=== PATIENT | female | born 1935 | race Caucasian/White ===

== ENCOUNTER 2016-12-15 13:03 | Inpatient (IN) | payer OTHER, MEDICARE ==
[~2016-12-15] VITALS: Ht 157.5 cm; Wt 63.5 kg
[~2016-12-15 13:03] MED LIST: AMLODIPINE BESYL5 M1 PO; ASPIRIN EC81 M1 PO; CALCIUM600 M2 PO; IBUPROFEN600 M1 PO; NORVASC2.5 M1 PO; OMEPRAZOLE20 M2 PO; PROTONIX20 M1 PO; SENNA PLUS TAB1 EACH PO; SIMVASTATIN20 M2 PO; TRIAMTERENE-HC1 EAC1 PO; ZOFRAN ODT4 M1 SL
--- NOTE | 2016-12-15 13:06 | NUR ---
TO EKG [facility].
--- NOTE | 2016-12-15 13:33 | NUR ---
PT TO ROOM22 BY STRETCHER FOR R KNEE PAIN 08/20 S/P KNEE POPPED TODAY. PT STATES R KNEE HAS BEEN PAINFULL FOR 3 WEEKS. PAIN INCREASE WITH PALPATION AND MOVEMENTS. PT DENIES ANY OTHER SYMPTOMS AT THIS TIME, VSS. HX OF HTN, HIGH CHOL,CVA. PA STUDENT TO BEDSIDE FOR PT EVAL.
--- NOTE | 2016-12-15 13:39 | ED UPPER/LOWER EXTREMITY COMPL ---
History of Present Illness General Chief Complaint: Lower Extremity Problems Stated Complaint: RT LEG SWELLING, RT KNEE PAIN Source: patient, family, old records Exam Limitations: no limitations Vital Signs & Intake/Output Vital Signs & Intake/Output Vital Signs Date Time Temp Pulse Resp B/P Pulse O2 O2 Flow FiO2 Ox Delivery Rate 12/16 0709 97.7 67 20 130/70 97 Room Air 12/16 0227 78 120/80 12/15 2247 97.7 92 20 138/80 95 Room Air 12/15 1854 97.1 64 18 178/84 97 Room Air 12/15 1653 97.1 79 18 154/82 97 Room Air 12/15 1331 98.7 77 18 155/78 99 Room Air ED Intake and Output 12/16 0000 12/15 1200 Intake Total Output Total 350 Balance -350 Output, 200 Emesis Output, Urine 150 Patient 140 lb Weight Allergies Coded Allergies: No Known Allergies (04/11/16) Triage Note: PT TO ROOM22 BY STRETCHER FOR R KNEE PAIN 10/10 S/P KNEE POPPED TODAY. PT STATES R KNEE HAS BEEN PAINFULL FOR 3 WEEKS. PAIN INCREASE WITH PALPATION AND MOVEMENTS. PT DENIES ANY OTHER SYMPTOMS AT THIS TIME, VSS. HX OF HTN, HIGH CHOL,CVA. PA STUDENT TO BEDSIDE FOR PT EVAL. Triage Nurses Notes Reviewed? yes Onset: Gradual Duration: week(s): (3), constant, continues in ED, getting worse Timing: recent history Severity: moderate, severe Severity Numbers: 10 Pain/Injury Location: Right: Knee. Method of Injury: unknown Modifying Factors: Improves With: rest. Worsens With: movement. Associated Symptoms: denies HPI: 81-year-old female with history of hypertension high cholesterol presents emergency room for evaluation with her family for evaluation. The patient for the past 3 weeks has had right knee pain, she denies any known injury or trauma however this morning while she was walking with her daughter felt a sharp pop that was sudden in onset to her right knee and since has had 10 out of 10 severe pain and has been unable to ambulate or bear weight on the leg secondary to pain there is no fall. She denies any back hip foot or ankle pain no numbness or tingling. They state that the knee has been swollen however denies any redness or rashes. The patient developed sudden onset of chest pressure and shortness of breath after the knee pain began and has since resolved. She took Tylenol 650 mg at 9:30 this morning without improvement. Pain is worse with attempted range of motion and palpation (JUAN FUNES) Reconcile Medications Amlodipine Besylate 5 MG TABLET 1 TAB PO DAILY BLOOD PRESSURE Aspirin (Ecotrin*) 81 MG TABLET.DR 1 TAB PO DAILY HEART HEALTH (Reported) Calcium Carbonate (Calcium) 600 MG TABLET 1 TAB PO DAILY SUPPLEMENT (Reported ) Simvastatin (Simvastatin*) 20 MG TABLET 1 TAB PO QPM CHOLESTEROL (Reported) (DELIA PARK,CAROL) Past History Travel History Traveled to [place] past 21 day No Medical History Any Pertinent Medical History? see below for history Neurological: CVA Cardiovascular: hypertension, hyperlipidemia Respiratory: NONE Gastrointestinal: NONE Hepatic: NONE Renal: nephrolithiasis Musculoskeletal: prior foot fracture Psychiatric: NONE Endocrine: NONE Blood Disorders: NONE Cancer(s): skin cancer s/p resection BAND EDGER/Reproductive: TERRA History of MRSA: No History of VRE: No History of CDIFF: No Surgical History Surgical History: non-contributory Psychosocial History Who do you live with Family Services at Home None What is your primary language Yemeni Tobacco Use: Never used Family History Family History, If Any: FATHER FH: heart disease, Onset: 60+. Relation not specified for: Stroke or transient ischemic attack in mother Hx Contributory? No (JUAN FUNES) Review of Systems Review of Systems Constitutional: Reports: see HPI. All Other Systems: Reviewed and Negative Comments Review of systems: See HPI, All other systems negative. Constitutional, no chills no fever, no malaise n HEENT: No visual changes no sore throat no congestion, no ear pain Cardiovascular: chest pain , no palpitation , no orthopnea no ankle swelling Skin, no jaundice no rashes, no change in skin Respiratory: No dyspnea no cough no sputum no hemoptysis GI: No nausea no vomiting, no diarrhea, : No dysuria No hematuria, no frequencye Muscle skeletal: joint pain, no joint swelling, no back pain, no neck pain, Neurologic: No numbness no confusion, no headache Psych: No stress Heme/endocrine: No bruising no bleeding Immunology: No lymphadenopathy, (JUAN FUNES) Physical Exam Physical Exam General Appearance: well developed/nourished, alert, awake Comments: Well-developed well-nourished person in no acute distress HEENT: Normal EENT exam; PERRL, EOMI, no nystagmus. HEAD is atraumatic. moist mucous membranes. Neck: Supple, no lymphadenopathy, normal range of motion without pain or tenderness Back: Nontender, no CVA tenderness. Full range of motion Cardiovascular: Regular rate and rhythms no murmurs rubs or gallops, normal JVP Respiratory: Chest nontender.There were no bony deformities, no asymmetry. No respiratory distress. Patient speaking in full complete sentences. Breath sounds clear to auscultation bilaterally: NO W/R/R Abdomen: Soft, nontender nondistended, no appreciable organomegaly. Normal bowel sounds. No rebound/guarding, No appreciable enlargement of the abdominal aorta, No ascites. Upper Extremity: No edema, full range of motion of extremities, normal and equal pulses bilaterally, 5 out of 5 strength noted to bilateral upper extremities Hip/Pelvis: Atraumatic/Stable. FROM. No pain with pelvic compression Knee: Atraumatic/stable. Patient is able to straight leg raise however with pain LIMITED range of motion secondary pain, anterior knee swelling, no effusion. No laxity. Negative dennys/anterior drawer test. pain with ROM Leg: Atraumatic. Nontender. No edema, 5 out of 5 strength in the lower extremity, normal dorsiflexion of great toe bilaterally, gross sensation is intact, patellar tendon reflex 2+ bilaterally. Ankle/Foot: Atraumatic/stable. Skin intact. FROM. No swelling, no effusion. No laxity on exam Pulses: Normal/equal DP/PT pulses bilaterally. Brisk cap refill Neuro: Alert oriented x3, motor sensory normal, cranial nerves II through XII grossly intact. There were no obvious focal neurologic abnormalities. Skin: No appreciable rash on exposed skin, skin is warm and dry. Psych: Mood and affect is normal, memory and judgment is normal. (THAIS COTTO,JUAN) Progress Differential Diagnosis: compartment syndrome, contusion, dislocation, DVT, fracture, gout, septic arthritis, sprain, tendon injury, ami, pe Plan of Care: Orders Procedure Date/time Status Heart Healthy Diet 12/16 B Active Vital Signs 12/15 1943 Active Teach/Educate 12/15 1943 Active Nutritional Intake, Monitor 12/15 1943 Active Isolation 12/15 1943 Active Intake & Output 12/15 1943 Active Patient Care Conference 12/15 1943 Active Activity/Ambulation 12/15 194 Active MRI-RT KNEE W/O & W MONALISA 12/15 192 Active Pathway - chart 12/15 1740 Active House Staff 12/15 1740 Active Patient Data 12/15 1740 Active Code Status 12/15 1740 Active Patient Data 12/15 1646 Active Admit to inpatient 12/15 1631 Active Vital Signs 12/15 1631 Active Code Status 12/15 1631 Complete Intake & Output 12/15 1500 Active URIC ACID 12/15 1446 Complete RHEUMATOID FACTOR 12/15 1446 Complete WESTERGREN SED RATE 12/15 1446 Complete C-REACTIVE PROTEIN 12/15 1446 Complete ANTINUCLEAR ANTIBODY 12/15 1446 Active Durable Medical Equipment 12/15 1445 Active Saline Lock 12/15 1406 Active TROPONIN LEVEL 12/15 1356 Complete COMPREHENSIVE METABOLIC PANEL 12/15 1356 Complete CBC WITHOUT DIFFERENTIAL 12/15 1356 Complete EKG 12/15 1306 Active PT Evaluate & Treat 12/15 UNK Active Lab Add-on Test 12/15 UNK Active VTE Mechanical Prophylaxis 12/15 UNK Active Nursing Misc 12/15 UNK Active MRI-RT KNEE W/O & W MONALISA 12/15 UNK Active EKG 12/15 UNK Active Current Medications Sig/Saad Start time Last Medication Dose Stop Time Status Admin Atorvastatin Calcium 20 MG 1700 12/16 1700 AC (Lipitor) Amlodipine Besylate 5 MG DAILY 12/16 1000 AC (Norvasc) Aspirin Buffered 81 MG DAILY 12/16 1000 AC (Ecotrin) Omeprazole 20 MG BID 12/15 2200 CAN (Prilosec) Senna/Docusate Sodium 1 TAB BID PRN 12/15 2014 AC (Senokot S) Ondansetron HCl 4 MG Q6P PRN 12/15 1930 AC (Zofran) Oxycodone/ 1 TAB Q4 PRN 12/15 1745 AC Acetaminophen (Percocet) Ketorolac 30 MG ONCE ONE 12/15 1415 CAN Tromethamine 12/15 1416 (Toradol) Laboratory Tests 12/15/16 1446: Rheum Factor Semi-Quant < 8.6 12/15/16 1446: Anion Gap 12, Estimated GFR > 60, BUN/Creatinine Ratio 18.8, Glucose 79, Uric Acid 5.1, Calcium 10.5 H, Total Bilirubin 0.7, AST 26, ALT 35, Alkaline Phosphatase 94, Troponin I < 0.01, C-Reactive Prot, Quant < 0.5, Total Protein 7.5, Albumin 4.6, Globulin 2.9, Albumin/Globulin Ratio 1.6, CBC w Diff NO MAN DIFF REQ, RBC 4.78, MCV 92.1, MCH 30.8, RDW 13.2, MPV 8.4, Gran % 62.5, Lymphocytes % 29.0, Monocytes % 7.3, Eosinophils % 0.6, Basophils % 0.6, Absolute Granulocytes 6.4, Absolute Lymphocytes 3.0, Absolute Monocytes 0.8 H, Absolute Eosinophils 0.1, Absolute Basophils 0.1, PUBS MCHC 33.5, ESR Westergren 22 H, KYRA Titer Pending, Anti-Nuclear Antibody Pending Labs ordered over reviewed patient medicated with Toradol 15 mg morphine 2 mg IV ultrasound x-ray ordered On repeat evaluation patient reports pain has persisted morphine 2 mg IV ordered , I discussed with the patient and her family and daughter her ultrasound and lab results x-ray findings leg immobilizer was applied. Patient is still having difficulty bending leg discussed with him given her symptoms she may require admission for PT consult possible MRI which they're in agreement with however recheck after she is medicated 12/15/2016 4:38:12 PM patient unable to ambulate and get out of bed secondary to pain discussed with her daughter the plan of care she is a fall risk premature discharge repeat medically harmful which they're in agreement with Case discussed with Dr. Hunter Case discussed with Dr. ANNE (THAIS COTTO,JUAN) Diagnostic Imaging: Viewed by Me: Radiology Read, Ultrasound. Discussed w/RAD: Radiology Read, Ultrasound. Radiology Impression: PATIENT: QUENTIN GOULD PRESENT AGE: 81 PATIENT ACCOUNT NO: [id number] : 34 LOCATION: [facility] ORDERING PHYSICIAN: JUAN COTTO SERVICE DATE: 12/15/16 EXAM TYPE: RAD - XRY- KNEE COMPLETE RIGHT EXAMINATION: XR KNEE, RIGHT CLINICAL INFORMATION: Right knee pain. No known injury. COMPARISON: None TECHNIQUE: Four views of the right knee. FINDINGS: Bones and soft tissues are normal. No fracture or joint effusion. Alignment is anatomic. Joint spaces are well maintained. No abnormal soft tissue calcification. Joint spaces are maintained. No significant degenerative disease is seen. Mild vascular calcification is seen in the popliteal artery. IMPRESSION : Normal right knee. DICTATED BY: SOURAV NICE MD DATE/TIME DICTATED:1439 HEAT READER:ANSELMO DATE/TIME TRANSCRIBED:12/15/161439 CONFIDENTIAL, DO NOT COPY WITHOUT APPROPRIATE AUTHORIZATION. <Electronically signed in Other Vendor System> SIGNED BY: SOURAV NICE MD 12/15/161444 , PATIENT: QUENTIN GOULD PRESENT AGE: 81 PATIENT ACCOUNT NO: [id number] : 34 LOCATION: [facility] ORDERING PHYSICIAN: JUAN COTTO SERVICE DATE: 12/15/16 EXAM TYPE: US - US-UNILATERAL VENOUS DOPPLER EXAMINATION: US TRIPLEX LOWER EXTREMITY, RIGHT CLINICAL INFORMATION: Right lower extremity pain and swelling. COMPARISON: None TECHNIQUE: Color-flow triplex imaging with spectral analysis and compression Doppler were performed on the right lower extremity. FINDINGS: Respiratory variation, normal compression and augmented flow are noted throughout the lower extremity. The visualized common femoral vein, proximal greater saphenous vein, femoral vein, profunda femoral vein, popliteal vein and visualized mid calf venous segments show no evidence of deep venous thrombosis. There is no Ny's cyst. IMPRESSION: Normal triplex scan without evidence of deep venous thrombosis involving the right lower extremity. DICTATED BY: MARVIN PATEL MD DATE/TIME DICTATED:12/15/161434 HEAT READER:ANSELMO DATE/TIME TRANSCRIBED:12/15/161434 CONFIDENTIAL, DO NOT COPY WITHOUT APPROPRIATE AUTHORIZATION. <Electronically signed in Other Vendor System> SIGNED BY: MARVIN PATEL MD 12/15/161445 (JUAN FUNES) Departure Departure Time of Disposition: 1633 Disposition: HOME OR SELF CARE Condition: Stable Clinical Impression Primary Impression: Knee pain Secondary Impressions: Gait instability Referrals: PHILL PARK,LYNDA Hopkins (PCP/Family) Departure Forms: Customer Survey General Discharge Information Admission Note Spoke With: ALLISON ANNE MD Documentation of Exam: Documentation of any treatments & extenuating circumstances including Concerns Regarding Discharge (functional status, medication knowledge or non-compliance, living conditions, etc.) that warrant an admission rather than observation: PAIN intractable despite multiple doses of iv narcotics, unable to stand ambulate at [facility] secondary to pain, pt will require iv pain meds, PT consult, possible MRI of knee, premature discharge would be medically- she is a fall risk (THAIS COTTO,JUAN) PA/YOKE PRESSER Co-Sign Statement Statement: ED Attending supervision documentation- [X] I saw and evaluated the patient. I have also reviewed all the pertinent lab results and diagnostic results. I agree with the findings and the plan of care as documented in the PA's/YOKE PRESSER's documentation. [X] I have reviewed the ED Record and agree with the PA's/YOKE PRESSER's documentation. [] Additions or exceptions (if any) to the PAs/YOKE PRESSER's note and plan are summarized below: [] (DELIA PARK,CAROL)
--- NOTE | 2016-12-15 14:03 | NUR ---
PT EVALUATED BY YADIEL PLASCENCIA AND SENT TO US BY NORIS.
--- NOTE | 2016-12-15 14:45 | RADIOLOGY REPORT ---
EXAMINATION: XR KNEE, RIGHT CLINICAL INFORMATION: Right knee pain. No known injury. COMPARISON: None TECHNIQUE: Four views of the right knee. FINDINGS: Bones and soft tissues are normal. No fracture or joint effusion. Alignment is anatomic. Joint spaces are well maintained. No abnormal soft tissue calcification. Joint spaces are maintained. No significant degenerative disease is seen. Mild vascular calcification is seen in the popliteal artery. IMPRESSION: Normal right knee.
--- NOTE | 2016-12-15 14:46 | ULTRASOUND REPORT ---
EXAMINATION: US TRIPLEX LOWER EXTREMITY, RIGHT CLINICAL INFORMATION: Right lower extremity pain and swelling. COMPARISON: None TECHNIQUE: Color-flow triplex imaging with spectral analysis and compression Doppler were performed on the right lower extremity. FINDINGS: Respiratory variation, normal compression and augmented flow are noted throughout the lower extremity. The visualized common femoral vein, proximal greater saphenous vein, femoral vein, profunda femoral vein, popliteal vein and visualized mid calf venous segments show no evidence of deep venous thrombosis. There is no Ny's cyst. IMPRESSION: Normal triplex scan without evidence of deep venous thrombosis involving the right lower extremity.
--- NOTE | 2016-12-15 14:58 | NUR ---
PT RETURNED FROM US BY STRETCHER. IV EST, PT MEDICATED WITH TORADOL AND MORPHINE PER EMAR. TOLERATED WELL. BLOOD DRAWN AND SENT TO [facility].
[2016-12-15 15:00] LABS: ABSOLUTE BASOPHIL COUNT 0.1 /CUMM (0.0-0.2); ABSOLUTE EOSINOPHIL COUNT 0.1 /CUMM (0.0-0.7); ABSOLUTE GRANULOCYTE CT 6.4 /CUMM (1.4-6.5); ABSOLUTE MONOCYTE COUNT 0.8 /CUMM (0.10-0.60); BASOPHIL % 0.6 % (0.0-2.0); EOSINOPHIL % 0.6 % (0-5); GRANULOCYTE % 62.5 % (42.2-75.2); MEAN CORPUSCULAR HGB 30.8 PG (27.0-31.0); MEAN CORPUSCULAR HGB CONC 33.5 G/DL (33.0-37.0); MEAN CORPUSCULAR VOLUME 92.1 FL (81.0-99.0); MEAN PLATELET VOLUME 8.4 FL (7.4-10.4); PLATELET COUNT 284 /CUMM (130-400); RBC DISTRIBUTION WIDTH 13.2 % (11.5-14.5); RED BLOOD CELL CT 4.78 /CUMM (4.20-5.40); WHITE BLOOD CELL COUNT 10.3 /CUMM (4.8-10.8)
--- NOTE | 2016-12-15 15:56 | NUR ---
PT STILL REPORTS R KNEE PAIN 08/20, MEDICATED WITH MORPHINE 2MG PER EMAR. KNEE IMMOBILIZER APPLIED TO R KNEE.
--- NOTE | 2016-12-15 17:25 | NUR ---
PT IS GOING TO ROOM 235-2
--- NOTE | 2016-12-15 17:44 | NUR ---
HOUSE STAFF AT BEDSIDE FOR PT EVAL.
--- NOTE | 2016-12-15 17:58 | NUR ---
FOOD TRAY ORDERED FOR PT.
--- NOTE | 2016-12-15 18:19 | History & Physical ---
ISRAEL PENNY 12/15/16 1756: General Information and HPI MD Statement: I have seen and personally examined QUENTIN GOULD and documented this H&P. The patient is a 81 year old F who presented with a patient stated chief complaint of [intractable right knee pain]. Source of Information: patient, family Exam Limitations: language barrier History of Present Illness: Patient is 82-year-old Croatian female with past medical history of hypertension, hyperlipidemia, nephrolithiasis who was brought into the ED for evaluation by her daughter for intractable right knee pain. The patient started having knee pain about 3 weeks ago. The pain has been getting worse over the past few days and today the patient heard a pop followed by sharp,10/10 pain in the right knee radiating to her ankle. Since today morning she hasn't been able to ambulate secondary to the pain. Denies any history of recent infection, diarrhea, trauma, falls, recent injuries, history of gout or osteoarthritis. Denies any fever, chills, rashes, tingling or numbness in the leg. She had developed a chest discomfort and shortness of breath after the knee pain began in the morning however it resolved by itself. She took Tylenol in the morning with no improvement. Has severe restriction of motion with leg movement. No previous attacks of arthropathy in the past. In the ED vitals were temperature 98.7, pulse 77, respiration 18, blood pressure 155/78, saturating 99% on room air. No white count, normal blood chemistries, negative troponins. Knee x-ray: Showed no evidence of fractures/effusion/no soft tissue calcifications/no joint space reduction/no significant degenerative disease. Mild vascular calcification seen in the popliteal artery. Ultrasound Doppler negative for DVT Patient received IV morphine and Toradol IV in the ER with slight improvement in symptoms. Allergies/Medications Allergies: Coded Allergies: No Known Allergies (04/11/16) Home Med list Amlodipine Besylate 5 MG TABLET 1 TAB PO DAILY BLOOD PRESSURE Aspirin (Ecotrin*) 81 MG TABLET.DR 1 TAB PO DAILY HEART HEALTH (Reported) Calcium Carbonate (Calcium) 600 MG TABLET 1 TAB PO DAILY SUPPLEMENT (Reported ) Simvastatin (Simvastatin*) 20 MG TABLET 1 TAB PO QPM CHOLESTEROL (Reported) Past History Travel History Traveled to [place] past 21 day No Medical History Neurological: CVA Cardiovascular: hypertension, hyperlipidemia Respiratory: NONE Gastrointestinal: NONE Hepatic: NONE Renal: nephrolithiasis Musculoskeletal: prior foot fracture Psychiatric: NONE Endocrine: NONE Blood Disorders: NONE Cancer(s): skin cancer s/p resection 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 Relation not specified for: Stroke or transient ischemic attack in mother Psychosocial History Who Do You Live With? child Services at Home: None Primary Language: Croatian Name of POA/HCP: Christiana [id number] Functional Ability ADLs Independent: dressing, eating, toileting, bathing. Ambulation: independent IADLs Independent: shopping, housework, finances, food prep, telephone, medication admin. Unknown: transportation. Review of Systems Review of Systems Constitutional: Reports: malaise, weakness. EENTM: Reports: no symptoms. Cardiovascular: Reports: no symptoms. Respiratory: Reports: no symptoms. GI: Reports: no symptoms. Genitourinary: Reports: no symptoms. Musculoskeletal: Reports: joint pain, joint swelling, muscle pain, muscle stiffness. Skin: Reports: no symptoms. Neurological/Psychological: Reports: no symptoms. Exam & Diagnostic Data Last 24 Hrs of Vital Signs/I&O Vital Signs Date Time Temp Pulse Resp B/P Pulse O2 O2 Flow FiO2 Ox Delivery Rate 12/15 1653 97.1 79 18 154/82 97 Room Air 12/15 1331 98.7 77 18 155/78 99 Room Air Intake & Output 12/15 1600 12/15 0800 12/15 0000 Intake Total Output Total Balance Patient 63.503 kg Weight Physical Exam General Appearance Alert, Oriented X3, Cooperative, Moderate Distress Skin No Rashes, No Breakdown HEENT Atraumatic, PERRLA Neck Supple, No JVD Lymphatic Cervical nl Cardiovascular Regular Rate, Normal S1, Normal S2, No Murmurs Lungs Clear to Auscultation, Normal Air Movement Abdomen Normal Bowel Sounds, Soft, No Tenderness Neurological Normal Speech, Normal Tone, Sensation Intact, Cranial Nerves 3-12 NL, severe ROM in the right leg Extremities No Clubbing, No Cyanosis, right knee hot and tender. No fluctuation, no crepitations Vascular Normal Pulses, Pulses Symmetrical Last 24 Hrs of Labs/Joe: Laboratory Tests 12/15/16 1446: Anion Gap 12, Estimated GFR > 60, BUN/Creatinine Ratio 18.8, Glucose 79, Calcium 10.5 H, Total Bilirubin 0.7, AST 26, ALT 35, Alkaline Phosphatase 94, Troponin I < 0.01, Total Protein 7.5, Albumin 4.6, Globulin 2.9, Albumin/Globulin Ratio 1.6, CBC w Diff NO MAN DIFF REQ, RBC 4.78, MCV 92.1, MCH 30.8, RDW 13.2, MPV 8.4 , Gran % 62.5, Lymphocytes % 29.0, Monocytes % 7.3, Eosinophils % 0.6, Basophils % 0.6, Absolute Granulocytes 6.4, Absolute Lymphocytes 3.0, Absolute Monocytes 0.8 H, Absolute Eosinophils 0.1, Absolute Basophils 0.1, PUBS MCHC 33.5 Assessment/Plan Assessment: Patient is 82-year-old Croatian female with past medical history of hypertension, hyperlipidemia, nephrolithiasis, erosive gastritis who was brought into the ED for evaluation by her daughter for intractable right knee pain. In the ED vitals were temperature 98.7, pulse 77, respiration 18, blood pressure 155/78, saturating 99% on room air. No white count, normal blood chemistries, negative troponins. Knee x-ray: Showed no evidence of fractures/effusion/no soft tissue calcifications/no joint space reduction/no significant degenerative disease. Mild vascular calcification seen in the popliteal artery. Ultrasound Doppler negative for DVT Patient received IV morphine and Toradol IV in the ER with slight improvement in symptoms. Plan: 1. Intractable right knee pain? Monoarthritis: Tenderness and heat over the right knee on examination. Differentials could be inflammatory versus noninflammatory pathology. Septic arthritis/gout/pseudogout/osteonecrosis/ fracture/meniscal tear/osteoarthritis/rheumatoid arthritis. No evidence of fracture/dislocation/effusion/soft tissue calcification/joint space reduction/ degenerative disease on x-ray. No signs of infection. No history of gout, or arthritis. -Admit to [facility] floor -Continue splint for now -Vitals every shift -Check ESR and C-reactive protein -Icepack for/leg elevation -Continue knee immobilizer -Continue IV morphine and Percocet for pain control -No NSAIDS geven h/o gastritis -MRI in a.m. to evaluate knee joint -Consider ortho consult -Physical therapy evaluation 2.Continue all other home medications aspirin, statin, amlodipine, Prilosec DVT prophylaxis subcutaneous Lovenox Full code Severe pain pathway As Ranked By This Provider Problem List: 1. Knee pain 2. Gait instability Core Measures/Miscellaneous Acute Coronary Syndrome ACS Diagnosis: No Cerebrovascular Accident CVA/TIA Diagnosis: No Congestive Heart Failure CHF Diagnosis: No Venous Thromboembolism VTE Risk Factors: Age > 40 VTE Prophylaxis Ordered Inpt: Pharm- Lovenox No Mech VTE prophylaxis d/t: No contraindications No VTE Pharm Prophylaxis d/t: No contraindications VTE Diagnosis: No VTE Type: NONE VTE Confirmed by (Test): NONE Severe Sepsis Severe Sepsis Present: No Septic Shock Septic Shock Present: No Miscellaneous Documentation Attending Case Discussed With: OMID PARK,ALLISON Primary Care Physician: LYNDA POLLOCK MD Patient sees these Specialists dr salmon Level of Patient Care: General Medicine AGNIESZKA PARK, [facility] 12/15/16 2030: Attending MD Review Statement Attending Statement Attending MD Statement: examined this patient, discuss w/resident/PA/BLADDER CHANGER, agreed w/resident/PA/BLADDER CHANGER, discussed with family Attending Assessment/Plan: 82 yo Croatian F with h/o HTN, HLD, lung nodules, erosive gastritis, is here with intractable right knee pain, that has gradually progressed over past 3 weeks, with resultant difficulty with ambulation. Patient's daughter Christiana provides history. Patient was walking this afternoon when she heard a 'sudden pop' in her right knee, followed by excruciating pain and swelling of the knee. She did experience some chest discomfort and dyspnea immediately after which has since resolved. Denies trauma, fall, previous h/o gout or arthritis. Last admitted to [place] April 2016 for chest pain and low back pain. Patient follows with Dr. Salmon, she has ?missed beat or irregular beat, per daughter this is being monitored. Vitals stable except for hypertension. Exam: Right knee in immobilizer, when compared to left knee, it is warm, tender only on joint movement, no erythema, mild swelling, no fluctuance, no joint line tenderness. According to daughter, the swelling was pronounced on the posterior aspect of the knee. Peripheral pulses are well felt. Labs: ESR 22, calcium 10.5, otherwise neg work up. Right knee Xray: no effusion or fracture, no soft tissue calcification. Dopplers: no DVT or Ny's cyst. EKG: reported Afib, however visible P waves. Repeat EKG: SR. 1. Intractable right knee pain with difficulty in ambulation. GM admit, fall precautions, pain management with IV morphine and percocet, avoid NSAIDs given h /o erosive gastritis. Check uric acid, RF, CHRISTIANA. Ortho consult and PT eval. Patient will need MRI knee on Saturday to evaluate for cartilage or mesniscal tears. Continue knee immobilizer. 2. Essential hypertension. Continue amlodipine. 3. Patient reports an episode of weakness/ lightheadedness and nausea in the setting of pain. Supportive management with anti-emetic while on opiates. DVT ppx Lovenox. Full code.
--- NOTE | 2016-12-15 18:45 | NUR ---
REPORT GIVEN TO MALLIKA DUGAN TO [facility], [employer] CALLED FOR TRANSPORTATION.
--- NOTE | 2016-12-15 19:56 | NUR ---
PT ARRIVED TO FLOOR AT THIS TIME. PT ALERT AND ORIENTED, VOMITED X 1 AFTER MOVEMENT FROM STRETCHER TO BED. DAUGHTER AT BEDSIDE TRANSLATING. PER DAUGHTER PT'S BP WAS "HIGH IN THE ER JUST BEFORE SHE CAME UP HERE, I TOLD THEM TO CALL YOU, BUT I WROTE IT DOWN, 184/72" "THEN THEY RECHECKED IT AND IT WENT DOWN A LITTLE" PER DAUGHTER, PT WAS HERE IN [place] AND "HAD A STROKE" DR AARON AT BEDSIDE, REQUESTING 2ND EKG THE ONE PERFORMED IN ER SHOWED AFIB, WHICH IS NOT IN THE HISTORY. DR AARON EVALUATING PATIENT AT THIS TIME. PT STATING DIZZINESS WHILE MST WAS TAKING VS, PT LYING IN BED AND PER DAUGHTER "SHE SAID THAT THE ROOM IS SPINNING". IMMOBILIZER IN PLACE TO RIGHT KNEE. DENIES PAIN AT THIS TIME, ONLY WITH MOVEMENT.
--- NOTE | 2016-12-15 20:53 | Admission Certification ---
Admission Certification Certification Statement - As attending physician, I certify that at the time of - admission, based on clinical presentation, severity of - symptoms, need for further diagnostic testing and - therapeutic interventions, and risk of adverse outcomes - without in-hospital treatment, in my clinical assessment, - this patient requires an acute hospital stay for a minimum - of two nights or longer. I have also considered psychsocial - factors such as support system, advanced age, financial - issues, cognitive issues, and failed out-patient treatments, - past re-admission history, safety of patient, and lack of - compliance as applicable. Specific rationale supporting this admission is: Intractable right knee pain, difficulty ambulating.
--- NOTE | 2016-12-15 21:02 | NUR ---
PER ANOTHER NURSE, PT VOMITED AT THIS TIME, TIGAN GIVEN, 150-200 CC YELLOW VOMIT
[2016-12-15 22:47] VITALS: BP 138/80
[2016-12-16 02:27] VITALS: BP 120/80
[2016-12-16 07:09] VITALS: BP 130/70
--- NOTE | 2016-12-16 08:52 | PN- Housestaff ---
[facility] 12/16/16 0852: Subjective Follow-up For: Intractable right knee pain? Monoarthritis Complaints: continues to have pain in the right knee. Feeling much better with IV morphine and Percocet. Subjective: Patient was admitted yesterday for intractable right knee pain with severe restriction of movement. She has been receiving IV morphine and Percocet round- the-clock for pain control. Pain this morning is 7 / 10. Knee is currently in an immobilizer. Does not have any other complaints. Review of Systems Constitutional: Reports: malaise, weakness. EENTM: Reports: no symptoms. Cardiovascular: Reports: no symptoms. Respiratory: Reports: no symptoms. Gastrointestinal: Reports: no symptoms. Genitourinary: Reports: no symptoms. Musculoskeletal: Reports: joint pain, joint swelling, muscle pain, muscle stiffness (rt knee pain ). Skin: Reports: no symptoms. Neurological/Psychological: Reports: no symptoms. Objective Last 24 Hrs of Vital Signs/I&O Vital Signs Date Time Temp Pulse Resp B/P Pulse O2 O2 Flow FiO2 Ox Delivery Rate 12/16 0855 78 130/70 / 0709 97.7 67 20 130/70 97 Room Air / 0227 78 120/80 02/ 2247 97.7 92 20 138/80 95 Room Air / 1854 97.1 64 18 178/84 97 Room Air 02/ 1653 97.1 79 18 154/82 97 Room Air / 1331 98.7 77 18 155/78 99 Room Air Intake & Output / 1600 / 0800 02/ 0000 Intake Total Output Total 350 Balance -350 Output, 200 Emesis Output, Urine 150 Physical Exam General Appearance: Alert, Oriented X3, Cooperative, Mild Distress Skin: right knee swelling improved from yesterday. Immobilizer in place. HEENT: Atraumatic, PERRLA, EOMI Neck: Supple, No JVD Lymphatic: Cervical nl Cardiovascular: Regular Rate, Normal S1, Normal S2, No Murmurs Lungs: Clear to Auscultation, Normal Air Movement Abdomen: Normal Bowel Sounds, Soft, No Tenderness Neurological: Normal Speech, Normal Tone, severe ROM in right leg, exam not possible due to pain. . Power 5/5 in all othert extremities, reflexses intact Extremities: swelling in rt knee improved. Severe ROM, immobilizer in place. Vascular: Normal Pulses, Pulses Symmetrical Current Medications: Current Medications Sig/Saad Start time Last Medication Dose Route Stop Time Status Admin Amlodipine Besylate 5 MG DAILY 12/16 1000 AC 12/16 PO 0855 Aspirin Buffered 81 MG DAILY 12/16 1000 AC 12/16 PO 0855 Atorvastatin Calcium 20 MG 1700 12/16 1700 AC PO Enoxaparin Sodium 40 MG DAILY 12/15 1739 AC 12/16 SC 0856 Ketorolac 0 .STK-MED ONE 12/15 1451 DC Tromethamine .ROUTE Ketorolac 15 MG ONCE ONE 12/15 1430 DC 12/15 Tromethamine IV 12/15 1431 1458 Ketorolac 30 MG ONCE ONE 12/15 1415 CAN Tromethamine IV 12/15 1416 Morphine Sulfate 0 .STK-MED ONE 12/15 1903 DC .ROUTE Morphine Sulfate 2 MG Q2 PRN 12/15 1745 AC 12/15 IV 1911 Morphine Sulfate 0 .STK-MED ONE 12/15 1550 DC .ROUTE Morphine Sulfate 2 MG ONCE ONE 12/15 1545 DC / IV 12/15 1546 1555 Morphine Sulfate 0 .STK-MED ONE 12/15 1452 DC .ROUTE Morphine Sulfate 2 MG ONCE ONE 12/15 1415 DC /04 IV 12/15 1416 1458 Omeprazole 20 MG BID 12/15 2200 CAN PO Ondansetron HCl 4 MG Q6P PRN 12/15 1930 AC IV Ondansetron HCl 0 .STK-MED ONE 12/15 1904 DC .ROUTE Ondansetron HCl 4 MG ONCE ONE 12/15 1900 DC 12/15 IV 12/15 1901 1911 Oxycodone/ 1 TAB Q4 PRN 12/15 1745 AC Acetaminophen PO Patient Medication 1 UNIT ONE NR 12/15 1800 NV Teaching ED 12/15 1830 Patient Medication 1 UNIT ONE NR 12/15 1745 NV Teaching ED 12/15 1800 Patient Medication 1 UNIT ONE NR 12/15 1745 NV Teaching ED 12/15 1800 Patient Medication 1 UNIT ONE NR 12/15 1745 NV Teaching ED 12/15 1800 Patient Medication 1 UNIT ONE NR 12/15 1745 NV Teaching ED 12/15 1800 Senna/Docusate Sodium 1 TAB BID PRN 12/15 2015 AC PO Triamterene/HCTZ 1 CAP DAILY 12/15 1745 DC PO Trimethobenzamide HCl 200 MG TID PRN 12/15 1930 AC 12/15 IM 2058 Last 24 Hrs of Lab/Joe Results Last 24 Hrs of Labs/Mics: Laboratory Tests 12/15/16 1446: Rheum Factor Semi-Quant < 8.6 12/15/16 1446: Anion Gap 12, Estimated GFR > 60, BUN/Creatinine Ratio 18.8, Glucose 79, Uric Acid 5.1, Calcium 10.5 H, Total Bilirubin 0.7, AST 26, ALT 35, Alkaline Phosphatase 94, Troponin I < 0.01, C-Reactive Prot, Quant < 0.5, Total Protein 7.5, Albumin 4.6, Globulin 2.9, Albumin/Globulin Ratio 1.6, CBC w Diff NO MAN DIFF REQ, RBC 4.78, MCV 92.1, MCH 30.8, RDW 13.2, MPV 8.4, Gran % 62.5, Lymphocytes % 29.0, Monocytes % 7.3, Eosinophils % 0.6, Basophils % 0.6, Absolute Granulocytes 6.4, Absolute Lymphocytes 3.0, Absolute Monocytes 0.8 H, Absolute Eosinophils 0.1, Absolute Basophils 0.1, PUBS MCHC 33.5, ESR Westergren 22 H, KYRA Titer Pending, Anti-Nuclear Antibody Pending Assessment/Plan Assessment: Patient is 82-year-old Nigerien female with past medical history of hypertension, hyperlipidemia, nephrolithiasis, erosive gastritis who was brought into the ED for evaluation by her daughter for intractable right knee pain. Knee x-ray: Showed no evidence of fractures/effusion/no soft tissue calcifications/no joint space reduction/no significant degenerative disease. Mild vascular calcification seen in the popliteal artery. Ultrasound Doppler negative for DVT Patient received IV morphine and Toradol IV in the ER with slight improvement in symptoms. Plan: 1. Intractable right knee pain: Pain and swelling improved since yesterday. X- ray negative for fracture/dislocation/joint space reduction/degenerative changes /effusions. No history of fevers, infections, rashes, gout, arthritis. -Continue knee immobilizer - ESR 22, normal white count, uric acid level, C-reactive protein. -Continue pain control with IV morphine, tylenol and by mouth Percocet -No NSAIDS geven h/o gastritis -MRI on Saturday to evaluate right knee to look for cartilage injury/meniscal tears. -Physical therapy evaluation -Discussed the case with Dr. Rhodes over the phone. Agreeable with the current management. Will wait for the MRI results to discuss further management. Continue other home medications aspirin, statin, amlodipine, Prilosec DVT prophylaxis subcutaneous Lovenox Full code Severe pain pathway Problem List: 1. Gait instability 2. Knee pain 3. Leukocytosis 4. Weakness 5. Full code status 6. Hypertension Pain Ratin Pain Location: right knee Pain Goal: Pain 4 or less Pain Plan: iv morphine/ iv toradol and percocet Tomorrow's Labs & Rationales: none MARTINA PARK,SUSHIL 12/16/16 1311: Attending MD Review Statement Attending Statement Attending MD Statement: examined this patient, discuss w/resident/PA/CHIEF MINISTER, agreed w/resident/PA/CHIEF MINISTER, reviewed EMR data (avail) Attending Assessment/Plan: Patient seen and examined. Plan of care discussed with the medical team and the patient. Available lab work and radiology test reports were reviewed. Patient states that her pain has slightly improved since last night. She has been afebrile and vital signs are stable. Her lab work is stable from admission. Right knee shows only minimal swelling. Assessment plan * Severe right knee pain- add IV Tylenol to pain regimen. If possible avoid NSAIDs such as Toradol due to history of gastritis and esophagitis. Continue PPI. Obtain orthopedic consult and MRI.
[2016-12-16 14:20] VITALS: BP 118/60
[2016-12-16 22:24] VITALS: BP 120/70
--- NOTE | 2016-12-17 06:34 | Cons- Orthopedic ---
General Information and HPI Consulting Request Date of Consult: 12/17/16 Requested By: ALLISON ANNE MD History of Present Illness: This is an 81-year-old female with complaints of right knee pain. She felt acute pain in her knee 2 days ago. She was seen in emergency department and admitted for pain control. She denies any injuries to her knee. She denies any previous surgeries on her right knee. She has mild discomfort in her lower back. She states that initially she was having difficulty with active range of motion of her foot and toes. That has since resolved. Allergies/Medications Allergies: Coded Allergies: No Known Allergies (04/11/16) Home Med List: Amlodipine Besylate 5 MG TABLET 1 TAB PO DAILY BLOOD PRESSURE Aspirin (Ecotrin*) 81 MG TABLET.DR 1 TAB PO DAILY HEART HEALTH (Reported) Calcium Carbonate (Calcium) 600 MG TABLET 1 TAB PO DAILY SUPPLEMENT (Reported ) Simvastatin (Simvastatin*) 20 MG TABLET 1 TAB PO QPM CHOLESTEROL (Reported) Past History Medical History Neurological: CVA Cardiovascular: hypertension, hyperlipidemia Respiratory: NONE Gastrointestinal: NONE Hepatic: NONE Renal: nephrolithiasis Musculoskeletal: prior foot fracture Psychiatric: NONE Endocrine: NONE Blood Disorders: NONE Cancer(s): skin cancer s/p resection 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 Relation not specified for: Stroke or transient ischemic attack in mother Psychosocial History Who Do You Live With? child Services at Home: None Primary Language: Kyrgyz Smoking Status: Never Smoked Name of POA/HCP: Christiana [phone] Functional Ability ADLs Independent: dressing, eating, toileting, bathing. Ambulation: independent IADLs Independent: shopping, housework, finances, food prep, telephone, medication admin. Unknown: transportation. Exam & Diagnostic Data Vital Signs and I&O Vital Signs Date Time Temp Pulse Resp B/P Pulse O2 O2 Flow FiO2 Ox Delivery Rate 12/16 2224 98.8 74 20 120/70 92 Room Air 12/16 1420 98.8 67 20 118/60 96 12/16 0855 78 130/70 12/16 0709 97.7 67 20 130/70 97 Room Air Intake & Output 12/17 0800 12/17 0000 12/16 1600 12/16 0800 12/16 0000 02/04 1600 Intake Total 120 500 603 Output Total 350 350 Balance 120 500 253 -350 Intake, IV 3 Intake, Oral 120 500 600 Output, 200 Emesis Output, Urine 350 150 Patient 140 lb Weight Physical Exam: Right lower extremity exam reveals full extension of the right knee. I am able to passively flex her knee to 110. Knee stable to varus valgus stress. Yonathan exam was stable. Posterior drawer stable. She has mild tenderness over the lateral joint line. Medial joint line is nontender to palpation. MCL is nontender to palpation. No effusion is palpable. No swelling is noted. No erythema is noted. No warmth is noted. Strength exam is normal with knee extension as well as EHL, FHL, tibialis anterior. Normal sensation throughout the foot. Straight leg raise is negative. Last 24 Hours of Labs: Right lower extremity was negative for DVT. X-rays of the right knee demonstrates mild degenerative changes. Assessment/Plan Assessment/Plan This is an 81-year-old female with right knee pain consistent with degenerative changes. I would favor continued Toradol to improve her discomfort. An MRI is ordered. She can work with physical therapy to work on her range of motion and strengthening. I will see her in the office for further follow-up. Consult Acknowledgment - Thank you for your consult request.
[2016-12-17 07:09] VITALS: BP 124/64
--- NOTE | 2016-12-17 08:01 | PN- Housestaff ---
ANNA PARK,DAPHNIE 12/17/16 0801: Subjective Follow-up For: Intractible Knee Pain Subjective: Patient seen and examined. She is seen lying flat in bed resting comfortably. She appears to be in no acute distress. She reports increased pain in her knee, but admits that it is probably because she just worked with the physical therapist. Otherwise she denies any problems. Additionally she denies any headache, fever, chills, chest pain, shortness of breath, nausea, vomiting, diarrhea. No overnight events reported. Review of Systems Constitutional: Reports: see HPI. Objective Last 24 Hrs of Vital Signs/I&O Vital Signs Date Time Temp Pulse Resp B/P Pulse O2 O2 Flow FiO2 Ox Delivery Rate 12/17 0709 98.6 73 20 124/64 91 Room Air 12/16 2224 98.8 74 20 120/70 92 Room Air 12/16 1420 98.8 67 20 118/60 96 Intake & Output 12/17 1600 12/17 0800 12/17 0000 Intake Total 120 500 Output Total Balance 120 500 Intake, Oral 120 500 Physical Exam General Appearance: Alert, Oriented X3, Cooperative, No Acute Distress Other Physical Findings: General - well developed, well nourished, elderly woman in no acute distress HEENT - NCAT, PERRL, EOMI, anicteric sclera CVS - S1, S2 w/o m/g/r Resp - CTA bilaterally GI - Soft, nontender, nondistended, bowel sounds intact Neuro - Awake and alert, CN II - XII grossly intact Ext - normal pulses, no clubbing/cyanosis, mild right knee tenderness/swelling with pain on flextion, sensation intact Current Medications: Current Medications Sig/Saad Start time Last Medication Dose Route Stop Time Status Admin Acetaminophen 1,000 MG Q6P PRN 12/16 1515 AC N/A 1 UNIT IV Acetaminophen 650 MG Q6-PRN PRN 12/16 1145 AC PO Amlodipine Besylate 5 MG DAILY 12/16 1000 AC 12/16 PO 0855 Aspirin Buffered 81 MG DAILY 12/16 1000 AC 12/16 PO 0855 Atorvastatin Calcium 20 MG 1700 12/16 1700 AC 12/16 PO 1554 Enoxaparin Sodium 40 MG DAILY 12/15 1739 AC 12/16 SC 0856 Ketorolac 15 MG Q6P PRN 12/16 1000 DC Tromethamine IV 02/08 0959 Melatonin 5 MG AT BEDTIME 12/16 2200 AC 12/16 PO 2110 Morphine Sulfate 2 MG Q2 PRN 12/15 1745 AC 12/16 IV 1334 Ondansetron HCl 4 MG Q6P PRN 12/15 193 AC IV Oxycodone/ 1 TAB Q4 PRN 12/15 1745 AC 12/16 Acetaminophen PO 211 Senna/Docusate Sodium 1 TAB BID PRN 12/15 2014 AC PO Trimethobenzamide HCl 200 MG TID PRN 12/15 1930 AC 12/15 IM 2058 Assessment/Plan Assessment: Patient continues to experience significant right knee pain despite narcotic medications. NSAIDs would be preferred in lieu of this, however due to patients history of erosive esophagitis medications such as ibuprofen or toradol are held. MRI of her right knee was obtained today which demonstrated a meniscal tear as expected. This was discussed with Dr. King whom recommended pain control, physical therapy, and outpatient evaluation with potential knee injections. Right Knee Meniscal Tear: X ray of right knee on admission demonstrated no acute findings. MRI demonstrated an obliquie radial tear adjacent to the root of the posterior horn of the medial meniscus with slight extrusion of the meniscal body. Ultrasound ruled out DVT. ESR/CRP/Uric acid within normal limits - Zofran 4mg IV Q6H PRN nausea - Pain Control - Knee immobilization - PT Eval - Ortho consult; outpatient follow up History of Erosive Esophagitis - hold NSAIDS Hypertension - amlodipine 5mg PO Daily Hyperlipidemia - atorvastatin 20mg PO Daily Gastritis - Pain Plan/Bowel Regimen: -Acetaminophen 650mg PO Q6H PRN Pain 1-3 -Percocet 1 TAB PO Q4H -Morphine discontinued -Senokot S Diet - Regular Diet DVT PPx - lovenox Code Status - FULL CODE Problem List: 1. Knee pain Pain Ratin Pain Location: Right knee Pain Goal: Pain 7 or less Pain Plan: As noted in plan Tomorrow's Labs & Rationales: None ALLISON ANNE MD 12/17/16 1227: Attending MD Review Statement Attending Statement Attending MD Statement: examined this patient, discuss w/resident/PA/POWER SAW OPERATOR, agreed w/resident/PA/POWER SAW OPERATOR, discussed with family, reviewed EMR data (avail), discussed with nursing, discussed with case mgmt, reviewed images, amended to note Attending Assessment/Plan: Patient seen and examined, still complaining of excruciating pain in the right knee. She is getting Percocet for pain. She was seen by orthopedic Dr. Rhodes and he recommended doing an MRI. Vital Signs Date Time Temp Pulse Resp B/P Pulse O2 O2 Flow FiO2 Ox Delivery Rate 12/17 1043 73 124/64 02 0709 98.6 73 20 124/64 91 Room Air 12/16 2224 98.8 74 20 120/70 92 Room Air 12/16 1420 98.8 67 20 118/60 96 on exam; aox3, nad. cv; s1,s2, rrr. resp; clear. abd; soft, nt, bs+ ext; no edema. ms: right knee is in immobilizer. has limited rom. no labs. A/P; 79-year-old female with past medical history significant for hypertension, hyperlipidemia who was admitted with excruciating right knee pain requiring IV pain medications. Knee x-ray did not show any evidence of fracture, Doppler activity ultrasound was negative. Patient has been seen by orthopedic Dr. Rhodes and he recommended doing an MRI of the right knee. Currently patient is getting treated with narcotics for pain management as well as physical therapy. Scheduled for MRI today. Pending MRI results, we'll proceed further. If negative patient may be able to home today with home services. She will require a walker. If MRI shows any evidence of meniscal injury, will contact orthopedic. DVT Px; Lovenox.
[2016-12-17 14:05] VITALS: BP 120/72
[2016-12-17] MEDS ORDERED: MELATONIN5 M7 PO (14:36)
--- NOTE | 2016-12-17 14:43 | Patient Discharge Instructions ---
Discharge Instructions General Discharge Information Special Instructions: Continue all your previous home medications. Follow up with Dr. King for further treatment and care of your knee pain. Acute Coronary Syndrome Inclusion Criteria At DC or during hospital stay patient has or had the following: ACS DIAGNOSIS No Discharge Core Measures Meds if any: Prescribed or Continued at Discharge Meds if any: NOT Prescribed or Continued at Discharge Congestive Heart Failure Inclusion Criteria At DC or during hospital stay patient has or had the following: CHF DIAGNOSIS No Discharge Core Measures Meds if any: Prescribed or Continued at Discharge Meds if any: NOT Prescribed or Continued at Discharge Cerebrovascular accident Inclusion Criteria At DC or during hospital stay patient has or had the following: CVA/TIA Diagnosis No Discharge Core Measures Meds if any: Prescribed or Continued at Discharge Meds if any: NOT Prescribed or Continued at Discharge Venous thromboembolism Inclusion Criteria VTE Diagnosis No VTE Type NONE VTE Confirmed by (Test) NONE Discharge Core Measures - Per Current guidelines, there needs to be overlap - treatment for the first 5 days of Warfarin therapy. - If discharged on Warfarin prior to 5 days of - overlap therapy, the patient will need to be - assessed for post discharge needs including - *Post discharge parental anticoagulation - *Warfarin and/or parental anticoagulation education - *Follow up date to check INR post discharge At least 5 days overlap therapy as Inpatient No Meds if any: Prescribed or Continued at Discharge Note: Overlap Therapy is Warfarin and Anticoagulant Meds if any: NOT Prescribed or Continued at Discharge
[2016-12-17] MEDS ORDERED: PERCOCET 5-3251 EACH PO (14:44)
[2016-12-17] MEDS ORDERED: SENNA PLUS TAB1 EACH PO (15:06)
[2016-12-17] MEDS ORDERED: CALTRATE 600 +1 EACH PO (15:06)
[2016-12-17] MEDS ORDERED: MIRALAX17 G1 PO (15:07)
--- NOTE | 2016-12-17 15:17 | MRI REPORT ---
EXAMINATION: MR KNEE WITHOUT CONTRAST, RIGHT CLINICAL INFORMATION: Acute right knee pain. COMPARISON: Radiographs 12/15/2016. TECHNIQUE: MRI of the knee without contrast is performed using routine sequences. FINDINGS: MENISCI: Medial Meniscus: Prominent oblique radial tear of the posterior horn adjacent to the meniscal root. Intrasubstance degenerative signal of the meniscal body which is slightly extruded. Lateral Meniscus: Intact. LIGAMENTS: Cruciate: Intact. Degenerative signal of the PCL. Collateral: Intact. EXTENSOR MECHANISM: Intact. ARTICULAR CARTILAGE/BONE: Patellofemoral Compartment: Normal. Medial Compartment: Mild cartilage thinning and surface irregularity along the weightbearing aspect. Subchondral edema of the tibia posteriorly, subjacent to the meniscal root. Lateral Compartment: Mild articular cartilage thinning of the peripheral weightbearing aspect and minimal subchondral edema of the tibia posteriorly which is likely degenerative. JOINT FLUID AND BURSAE: There is a moderate joint effusion and lobulated Ny's cyst. IMPRESSION: Oblique radial tear adjacent to the root of the posterior horn of the medial meniscus with slight extrusion of the meniscal body. 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
[2016-12-17 23:18] VITALS: BP 116/70
[2016-12-18 06:28] VITALS: BP 120/60
--- NOTE | 2016-12-18 07:17 | PN- Housestaff ---
ANNA PARK,DAPHNIE 12/18/16 0717: Subjective Follow-up For: Intractible Knee Pain Subjective: Patient seen and examined. She is seen lying flat in bed resting comfortably. She appears to be in no acute distress. She reports sleeping well and denies any new complaints. She does admit to persistent right knee pain and is unsure of her mobility status. She is hesitant, but willing to working with physical therapy today. Otherwise she denies any headache, fever, chills, chest pain, shortness of breath, nausea, vomiting, diarrhea. No overnight events reported. Review of Systems Constitutional: Reports: see HPI. Objective Last 24 Hrs of Vital Signs/I&O Vital Signs Date Time Temp Pulse Resp B/P Pulse O2 O2 Flow FiO2 Ox Delivery Rate 12/18 0628 98.6 91 20 120/60 97 Room Air 12/17 2318 97.9 74 20 116/70 95 Room Air 12/17 1405 98.7 90 20 120/72 98 12/17 1043 73 124/64 Intake & Output 12/18 1600 12/18 0800 12/18 0000 Intake Total 120 120 Output Total 500 300 Balance -380 -180 Intake, Oral 120 120 Output, Urine 500 300 Physical Exam General Appearance: Alert, Oriented X3, Cooperative, No Acute Distress Other Physical Findings: General - well developed, well nourished, elderly woman in no acute distress HEENT - NCAT, PERRL, EOMI, anicteric sclera CVS - S1, S2 w/o m/g/r Resp - CTA bilaterally GI - Soft, nontender, nondistended, bowel sounds intact Neuro - Awake and alert, CN II - XII grossly intact Ext - normal pulses, no clubbing/cyanosis, knee immobilzer in place, mild right knee tenderness/swelling with pain on flextion, sensation intact Current Medications: Current Medications Sig/Saad Start time Last Medication Dose Route Stop Time Status Admin Acetaminophen 1,000 MG Q6P PRN 12/16 1515 AC N/A 1 UNIT IV Acetaminophen 650 MG Q6-PRN PRN 12/16 1145 AC PO Amlodipine Besylate 5 MG DAILY 12/16 1000 AC 12/17 PO 1043 Artificial Tears 2 GTT 4 TIMES/DAY 12/17 1800 AC 12/17 OPH 2310 Aspirin Buffered 81 MG DAILY 12/16 1000 AC 12/17 PO 1057 Atorvastatin Calcium 20 MG 1700 12/16 1700 AC 12/17 PO 1959 Enoxaparin Sodium 40 MG DAILY 12/15 1739 AC 12/17 SC 1039 Melatonin 5 MG AT BEDTIME 12/16 2200 AC 12/17 PO 2311 Morphine Sulfate 2 MG Q2 PRN 12/15 1745 DC 12/16 IV 1334 Ondansetron HCl 4 MG Q6P PRN 12/15 1930 AC IV Oxycodone/ 1 TAB Q4 12/17 1020 AC 12/18 Acetaminophen PO 0611 Oxycodone/ 1 TAB Q4 PRN 12/15 1745 DC 12/16 Acetaminophen PO 2111 Patient Medication 1 ED ONE ONE 12/17 1415 DC 12/17 Teaching ED 12/17 1416 1447 Polyethylene Glycol 17 GM DAILY 12/17 210 AC 12/17 PO 2314 Senna 187 MG AT BEDTIME 12/17 220 AC 12/17 PO 2311 Senna/Docusate Sodium 1 TAB BID PRN 12/15 2014 AC PO Trimethobenzamide HCl 200 MG TID PRN 12/15 1930 AC 12/15 IM 2058 Assessment/Plan Assessment: Patient is to work with physical therapy today. Yesterdays assessment determined that she was an assist of one and with require a rolling walker on discharge with recommendations of home physical therapy vs home self care. She is to be discharged to home with a short prescription of oral narcotic medicaitons and instruction to follow up with Dr. King as an outpatient. Right Knee Meniscal Tear: X ray of right knee on admission demonstrated no acute findings. MRI demonstrated an obliquie radial tear adjacent to the root of the posterior horn of the medial meniscus with slight extrusion of the meniscal body. Ultrasound ruled out DVT. ESR/CRP/Uric acid within normal limits - Zofran 4mg IV Q6H PRN nausea - Pain Control - Knee immobilization - PT Eval - Ortho consult; outpatient follow up History of Erosive Esophagitis - hold NSAIDS Hypertension - amlodipine 5mg PO Daily Hyperlipidemia - atorvastatin 20mg PO Daily Gastritis - Pain Plan/Bowel Regimen: -Acetaminophen/Percocet -Senokot S Diet - Regular Diet DVT PPx - lovenox Code Status - FULL CODE Problem List: 1. Knee pain Pain Ratin Pain Location: Right knee Pain Goal: Remain pain free Pain Plan: As noted in plan Tomorrow's Labs & Rationales: None MARTINA MD,SUSHIL 12/18/16 1428: Attending MD Review Statement Attending Statement Attending MD Statement: examined this patient, discuss w/resident/PA/CORPORATE SECURITY OFFICER, agreed w/resident/PA/CORPORATE SECURITY OFFICER, discussed with family, reviewed EMR data (avail) Attending Assessment/Plan: Patient seen and examined. Plan of care discussed with the medical team and the patient. Available lab work and radiology test reports were reviewed. Patient continued to complain of right knee swelling. She denies any recent fever or chills. Her vital signs are stable and she is currently afebrile. No new labs were done today. Christiana titers were negative. Right knee shows signs of swelling on the medial aspect without any erythema. She still has difficulty bending the knee which causes severe pain. Plan * If patient can ambulate with physical therapy she can be discharged home on pain medications. Avoid NSAIDs given history of esophagitis. * Patient will need follow-up with the orthopedic surgery for possibly steroid injection * Plan was discussed with patient daughter was at the bedside.
[2016-12-18 14:34] VITALS: BP 120/70
--- NOTE | 2016-12-18 20:09 | NUR ---
AT 1700 PATIENT STATES SHE FEELS NAUSEAUS. VSS. ZOFRAN 4 MG GIVEN. PERCOCET GIVEN FOR PAIN. PATIENT RESTING AT 1800. WILL CONTINUE TO MONITOR.
[2016-12-18 23:00] VITALS: BP 122/64
--- NOTE | 2016-12-19 07:12 | PN- Housestaff ---
ANNA PARK,DAPHNIE 12/19/16 0712: Subjective Follow-up For: Right knee meniscal tear Subjective: Patient seen and examined. She is seen sitting upright in bed resting comfortably. She appears to be in no acute distress. She reports that the pain in her right knee is much more tolerable on her new oral narcotic pain regimen. She does admit to new onset left sided chest pain that is worse with deep breaths this morning. She denies any blurred/double vision, dizziness/lightheadedness, fever, chills, palpitations, shortness of breath, cough, nausea, vomiting, diarrhea. No overnight events reported. Review of Systems Constitutional: Reports: see HPI. Objective Last 24 Hrs of Vital Signs/I&O Vital Signs Date Time Temp Pulse Resp B/P Pulse O2 O2 Flow FiO2 Ox Delivery Rate 12/19 1057 77 130/70 12/19 0740 97.9 77 20 130/70 95 Room Air 12/18 2300 98.2 78 18 122/64 94 Room Air 12/18 1434 98.0 62 20 120/70 96 Intake & Output 12/19 1600 12/19 0800 12/19 0000 Intake Total 300 500 Output Total Balance 300 500 Intake, Oral 300 500 Physical Exam General Appearance: Alert, Cooperative, No Acute Distress Other Physical Findings: General - well developed, well nourished, elderly woman in no acute distress HEENT - NCAT, PERRL, EOMI, anicteric sclera CVS - S1, S2 w/o m/g/r Resp - CTA bilaterally GI - Soft, nontender, nondistended, bowel sounds intact Neuro - Awake and alert, CN II - XII grossly intact Ext - normal pulses, no clubbing/cyanosis, knee immobilzer in place, mild right knee tenderness/swelling with pain on flextion, sensation intact Current Medications: Current Medications Sig/Saad Start time Last Medication Dose Route Stop Time Status Admin Acetaminophen 1,000 MG Q6P PRN 12/16 1515 AC N/A 1 UNIT IV Acetaminophen 650 MG Q6-PRN PRN 12/16 1145 AC PO Amlodipine Besylate 5 MG DAILY 12/16 1000 AC 12/19 PO 1057 Artificial Tears 2 GTT 4 TIMES/DAY 12/17 1800 AC 12/19 OPH 1058 Aspirin Buffered 81 MG DAILY 12/16 1000 AC 12/19 PO 1057 Atorvastatin Calcium 20 MG 1700 12/16 1700 AC 12/18 PO 2224 Enoxaparin Sodium 40 MG DAILY 12/15 1739 AC 12/19 SC 1057 Melatonin 5 MG AT BEDTIME 12/16 220 AC 12/18 PO 2224 Morphine Sulfate 1 MG ONCE ONE 12/18 1130 DC 12/18 IV 12/18 1131 1141 Ondansetron HCl 4 MG Q6P PRN 12/19 1015 CAN IV Ondansetron HCl 4 MG .STK-MED ONE 12/18 1745 DC IM 12/18 1746 Ondansetron HCl 4 MG .STK-MED ONE 12/18 1744 DC PO 12/18 1745 Ondansetron HCl 4 MG Q6P PRN 12/15 1930 AC 12/19 IV 1003 Oxycodone/ 2 TAB Q4 12/18 1400 AC 12/19 Acetaminophen PO 0942 Oxycodone/ 1 TAB Q4 12/17 1020 DC 12/18 Acetaminophen PO 0935 Polyethylene Glycol 17 GM DAILY 12/17 2103 AC 12/19 PO 1057 Senna 187 MG AT BEDTIME 12/17 220 AC 12/18 PO 2224 Senna/Docusate Sodium 1 TAB BID PRN 12/15 2015 AC PO Trimethobenzamide HCl 200 MG TID PRN 12/15 1930 AC 12/15 IM 2058 Last 24 Hrs of Lab/Joe Results Last 24 Hrs of Labs/Mics: Laboratory Tests 12/19/16 0902: Troponin I Cancelled 12/19/16 0817: D-Dimer 420 H Assessment/Plan Assessment: Patient was seen working with physical therapy today where she became acutely nauseated and had multiple episodes of yellow/bilious, nonbloody vomiting. Patient only ate one piece of toast this morning while on her new narcotic regimen for pain. Given these factors her episode of nausea/vomiting is most likely secondary to the high-dose of oral narcotics. Patient was encouraged to take these medications with food and to follow a regimen of 1-2 tablets every 6 hours as needed until directed otherwise by her orthopedist. A d-dimer, 12-lead EKG, and troponin were sent this morning after patient was complaining of left- sided pleuritic chest pain. D-dimer was found to be elevated to 420. Modified well's score was calculated and it was determined patient was at a low risk for pulmonary embolism. Patient was assessed later, she then denied any further pleuritic chest pain. She remained without tachycardia and was saturating adequately on room air throughout the day. She is to be discharged to home with instruction to follow-up with her primary care provider and orthopedist after discharge and to take her oral narcotic pain medication regimen as directed with food. CT SUPERVISOR ESTERS AND EMULS[employer]IERS was checked prior to discharge and it did not demonstrate any active narcotic prescriptions for the patient. Right Knee Meniscal Tear: X ray of right knee on admission demonstrated no acute findings. MRI demonstrated an obliquie radial tear adjacent to the root of the posterior horn of the medial meniscus with slight extrusion of the meniscal body. Ultrasound ruled out DVT. ESR/CRP/Uric acid within normal limits. - Zofran 4mg IV Q6H PRN nausea - Percocet 1-2 tab by mouth every 6 hours as needed for severe pain - Knee immobilization - PT Eval - Ortho consult; outpatient follow up Pleuritic chest pain Patient complaining of left-sided chest pain on 12/19/16 that is worse with deep breaths. D-dimer obtained found to be elevated 420. Patient's modified well's criteria score was calculated and it was determined patient was at a low risk for a thromboembolism. Patient was reassessed later in the day and her symptoms have resolved. No evidence of tachycardia or hypoxia demonstrated. History of Erosive Esophagitis - hold NSAIDS Hypertension - amlodipine 5mg PO Daily Hyperlipidemia - atorvastatin 20mg PO Daily Gastritis - Pain Plan/Bowel Regimen: -Acetaminophen/Percocet -Senokot S Diet - Regular Diet DVT PPx - lovenox Code Status - FULL CODE Problem List: 1. Knee pain Pain Ratin Pain Location: Right knee Pain Goal: Remain pain free Pain Plan: As noted in plan Tomorrow's Labs & Rationales: None ALLISON ANNE MD 12/19/16 1243: Attending MD Review Statement Attending Statement Attending MD Statement: examined this patient, discuss w/resident/PA/NATIONAL SALES DIRECTOR, agreed w/resident/PA/NATIONAL SALES DIRECTOR, discussed with family, reviewed EMR data (avail), discussed with nursing, discussed with case mgmt, reviewed images, amended to note Attending Assessment/Plan: Patient seen and examined, and the morning she was feeling slightly better and said that 2 tablets of Percocet was helping much better compared to the one tablet. Patient had previously complained of some left-sided under the rib cage pain upon taking a deep breath but when I saw and examined the patient she did not have any of that pain anymore. Patient found tachycardic and her oxygen saturation is normal. Vital Signs Date Time Temp Pulse Resp B/P Pulse O2 O2 Flow FiO2 Ox Delivery Rate 12/19 1057 77 130/70 12/19 0740 97.9 77 20 130/70 95 Room Air 12/18 2300 98.2 78 18 122/64 94 Room Air 12/18 1434 98.0 62 20 120/70 96 on exam; ao x3, nad. cv; s1,s2, rrr. resp; clear abd; soft, nt, bs+ ext; no edema. ms; limited rom at right knee. Laboratory Tests 12/19 12/19 0902 0817 Chemistry Troponin I Cancelled Coagulation D-Dimer (70 - 232 ng/ml) 420 H A/P; 79-year-old female with past medical history significant for hypertension, hyperlipidemia who was admitted with excruciating right knee pain requiring IV pain medications. MRI right knee shows Oblique radial tear adjacent to the root of the posterior horn of the medial meniscus with slight extrusion of the meniscal body. 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 Currently her pain is getting controlled with oral Percocet. Patient has been seen by orthopedic Dr. Rhodes and he recommended an outpatient follow-up. Patient worked with physical therapy and this morning when she was working she became nauseous and threw up. Previously she had complained of some chest pain and her d-dimer was checked which was 420. We calculated her WELLS score which came out low and had put her on low risk. She is not tachycardic or tachypneic. Her O2 saturation is perfectly fine. At this point will hold off on the CT chest. Likely she had a vasovagal episode after working with physical therapy and Percocet. Will watch her to make sure she tolerates her lunch. If she is feeling better by later today she could go otherwise should stay 1 more day to be discharged tomorrow. She will have a follow-up with Dr. Rhodes as an outpatient.
[2016-12-19 07:40] VITALS: BP 130/70
[2016-12-19] MEDS ORDERED: PERCOCET 5-3251 EACH PO (09:42)
[2016-12-19 10:57] VITALS: BP 130/70
--- NOTE | 2016-12-19 13:20 | Discharge Summary ---
Visit Information Visit Dates Admission Date: 12/15/16 Discharge Date: 12/19/16 Hospital Course Course Attending Physician: ALLISON ANNE MD Primary Care Physician: PHILL PARK,LYNDA Hopkins Consulting Request: Consulting Specialty: Orthopedics Hospital Course: 81-year-old woman with past medical history of hypertension, hyperlipidemia, and nephrolithiasis seen for evaluation of intractable right knee pain on 12/15/16. She reports progressively worsening right knee pain over the past 3 weeks prior to admission when she heard a "pop" followed by 10/10 sharp knee pain radiating to the ankle on the day of admission. She denies any trauma during this event and has limited mobility secondary to the pain. She is brought to the [facility] for evaluation. ED evaluation: -Vital signs: Temp 98.7, HR 77, RR 18, BP 155/78, O2 99% on room air -CBC/BEP/troponins negative or within normal limits -X-ray right knee: No evidence of fracture/effusion -Doppler negative for deep venous thrombosis -Morphine/Toradol given for pain control -Admitted to general medicine floor for further evaluation Intractable knee pain secondary to right knee meniscal tear Orthopedic consult placed with Dr. Rhodes whom recommended further evaluation of patient's right knee pain with an MRI imaging of the joint. MRI of the right knee demonstrated an oblique radial tear adjacent to the root of the posterior horn of the medial meniscus with slight extrusion of the meniscal body. ESR 22, CRP <0.5. NSAIDs were avoided for pain control due to patient's history of erosive esophagitis. Patient's pain was controlled with a regimen of 1-2 tablets of Percocet every 6 hours as needed. PT assessment determined patient was an assist of 1, would require a rolling walker, and would benefit from home physical therapy. Patient was discharged to home with instruction to follow-up with Dr. Rhodes in his office for further evaluation and potential knee injection for further pain control. Allergies: Coded Allergies: No Known Allergies (04/11/16) Significant Procedures: SERVICE DATE: 12/15/16-1333 EXAM TYPE: US - US-UNILATERAL VENOUS DOPPLER IMPRESSION: Normal triplex scan without evidence of deep venous thrombosis involving the right lower extremity. SERVICE DATE: 12/15/16-1404 EXAM TYPE: RAD - XRY-KNEE COMPLETE RIGHT IMPRESSION: Normal right knee. SERVICE DATE: 12/17/16 EXAM TYPE: MRI - MRI-RT KNEE W/O MONALISA IMPRESSION: Oblique radial tear adjacent to the root of the posterior horn of the medial meniscus with slight extrusion of the meniscal body. 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 Disposition Summary Disposition Principal Diagnosis: Right knee meniscal tear Additional Diagnosis: None Discharge Disposition: home health services Discharge Instructions General Discharge Information Code Status: Full Code Patient's Diet: Regular diet Patient's Activity: Activity level as determined by physical therapy assessment Follow-Up Instructions/Appts: Follow-up with Dr. Cunningham for further treatment and care of your right knee meniscal tear. Take 1-2 Percocet every 6 hours as needed for pain control. Do not drive or operate heavy machinery while on this medication. Continue all your previous home medications. Follow-up with your primary care provider after discharge. Medications at Discharge Discharge Medications: Stop taking the following medications: Calcium Carbonate (Calcium) 600 MG TABLET ORAL DAILY Days = 30 Continue taking these medications: Aspirin (Ecotrin*) 81 MG TABLET. 1 Tablet ORAL DAILY Days = 30 Comments: Last Taken: 12/19/16 Time: 11 AM Simvastatin (Simvastatin*) 20 MG TABLET 1 Tablet ORAL Every night Days = 30 Comments: NOT GIVEN IN HOSPITAL Amlodipine Besylate (Amlodipine Besylate) 5 MG TABLET 1 Tablet ORAL DAILY Days = 30 Comments: Last Taken:12/19/16 Time: 11 AM Start taking the following new medications: Oxycodone HCl/Acetaminophen (Percocet 5-325 MG Tablet) 5 MG-325 MG TABLET 2 Tablet ORAL EVERY SIX HOURS as needed for KNEE PAIN Qty = 56 No Refills Comments: Last Taken: 12/19/16 Time: 2 PM Melatonin (Melatonin) 5 MG TABLET 5 Milligram ORAL AT BEDTIME Qty = 30 No Refills Sennosides/Docusate Sodium (Senna Plus Tablet) 8.6 MG-50 MG TABLET 1 Tablet ORAL TWICE DAILY as needed for CONSTIPATION Qty = 30 No Refills Calcium Carbonate/Vitamin D3 (Caltrate 600 + D Tablet) 600 MG-800 TABLET 1 Tablet ORAL Every other day Qty = 15 No Refills Comments: NOT GIVEN IN HOSPITAL Polyethylene Glycol 3350 (Miralax) 17 GRAM POWD.PACK 1 Packet ORAL DAILY Qty = 30 No Refills Instructions: dissolve in water Comments: Last Taken: 12/19/16 Time: 11AM Copies To: SHELDON PARK,REGINALD; PHILL PARK,LYNDA Hopkins
== END 2016-12-19 14:49 | disposition home health service (06) | DRG 563 ==
LOC: ENRESERVDT → ENRESERVTM → ERH 13:03 → 2NA 16:31 → ERHI 16:31 → 2NA 19:28
PROVIDERS: Physician Assistant Medical; ADMIT Hospitalist
DX: S83.241A Other tear of medial meniscus, current injury, right knee, initial encounter (principal); I10 Essential (primary) hypertension; E78.5 Hyperlipidemia, unspecified; R26.89 Other abnormalities of gait and mobility; M17.11 Unilateral primary osteoarthritis, right knee; R07.9 Chest pain, unspecified; M25.461 Effusion, right knee; M71.21 Synovial cyst of popliteal space [Baker], right knee; X58.XXXA Exposure to other specified factors, initial encounter; Z86.73 Personal history of transient ischemic attack (TIA), and cerebral infarction without residual deficits
CPT/HCPCS: 2NASP; 73721; 73562-RT; 86431; 93005; 93010; 96374; 96375; 96376; 97110-GO; 97116-GO; 97161-GP; 97530-GO; J0131; J1650; J1885; J2405; J3101; J3250